=== PATIENT | female | born 1980 | race Caucasian/White ===

== ENCOUNTER 2023-08-14 12:10 | Inpatient (IN) | payer BC ==
[~2023-08-14] VITALS: Ht 172.7 cm; Wt 83.0 kg
[2023-08-14 12:10] VITALS: BP_SYST 134; PULSE 61; RESP 20; TEMP 96.7; O2SAT 100
[2023-08-14] MEDS ORDERED: NACL 0.9% 1,000 ML IV ONE (12:30)
[2023-08-14] MEDS ORDERED: MORPHINE 4 MG INJ. 4 MG/ML VIAL IVP ONE (12:30)
[2023-08-14] MEDS ORDERED: ONDANSETRON HCL 4 MG/2 ML VIAL IVP ONE ×2 (12:30→15:00)
[2023-08-14] MEDS ORDERED: KETOROLAC TROMETHAMINE 30 MG VIAL IVP ONE (12:30)
[2023-08-14 13:11] LABS: CALCIUM 9.6 mg/dL (8.4-11.0); CREATININE 0.89 mg/dL (0.55-1.30); POTASSIUM 3.5 mmol/L (3.5-5.1)
[2023-08-14 13:13] LABS: BASOPHILS # (AUTO) 0.1 K/uL (0.0-0.2); BASOPHILS % (AUTO) 0.3 % (0.0-2.0); EOSINOPHILS # (AUTO) 0.1 K/uL (0.0-0.4); EOSINOPHILS % (AUTO) 0.4 % (0.0-4.0); HEMOGLOBIN 14.8 g/dL (12.0-16.0); LYMPHOCYTES # (AUTO) 1.7 K/uL (1.0-5.5); LYMPHOCYTES % (AUTO) 8.5 % (20.5-51.5); MEAN CORPUSCULAR HEMOGLOBIN 30 pg (27-31); MEAN CORPUSCULAR HGB CONC 34 % (32-36); MEAN CORPUSCULAR VOLUME 87 fL (79.0-98.0); MONOCYTES # (AUTO) 0.8 K/uL (0.0-1.0); MONOCYTES % (AUTO) 3.8 % (1.7-9.3); PLATELET COUNT (AUTO) 256 K/uL (130-430); RED BLOOD CELL COUNT(AUTO) 4.94 MIL/uL (4.2-6.2); RED CELL DISTRIBUTION WIDTH 14.1 % (9.0-15.0); WHITE BLOOD COUNT (AUTO) 19.5 K/uL (4.8-10.8)
[2023-08-14 13:21] LABS: ALBUMIN 4.4 g/dL (3.4-4.8); BILIRUBIN,DIRECT 0.3 mg/dL (0.0-0.3); TOTAL BILIRUBIN 0.9 mg/dL (0.0-1.0); TOTAL PROTEIN, SERUM 7.7 g/dL (6.4-8.3)
[2023-08-14 13:21] LABS: BILIRUBIN,URINE 1+ (NEGATIVE); BLOOD, URINE 3+ (NEGATIVE); CLARITY/URINE SL CLOUDY (CLEAR); COLOR,URINE YELLOW (YELLOW); GLUCOSE,URINE NEGATIVE (NEGATIVE); KETONES,URINE 3+ (NEGATIVE); LEUKOCYTE ESTERASE ,URINE NEGATIVE (NEGATIVE); NITRITE, URINE NEGATIVE (NEGATIVE); PROTEIN URINE 1+ (NEGATIVE); UROBILINOGEN,URINE 0.2 (0.2-1.0)
[2023-08-14 13:42] LABS: BACTERIA,URINE MODERATE /HPF (None Seen); WBC,URINE 0-3 /HPF (0-3)
[2023-08-14 13:43] LABS: CALCIUM OXALATE CRYSTALS,UR 0-10 /HPF (None Seen)
[2023-08-14] MEDS ORDERED: DIPHENHYDRAMINE INJ 50 MG/ML VIAL IVP ONE (17:00)
[2023-08-14] MEDS ORDERED: METOCLOPRAMIDE HCL 10 MG/2 ML VIAL IVP ONE (17:00)
[2023-08-14] MEDS ORDERED: cefTRIAXone 1 GM in D5W 50 ML IV ONE (17:45)
[2023-08-14] MEDS ORDERED: metroNIDAZOLE 500 mg/NS 100 ML IV ONE (17:45)
[2023-08-14] MEDS ORDERED: MORPHINE 2 MG/ML INJ. SYRINGE IVP ONE (17:45)
[2023-08-14] MEDS ORDERED: metroNIDAZOLE 500 mg/NS 100 ML IV SCH (18:00)
[2023-08-14] MEDS ORDERED: cefTRIAXone 1 GM VIAL ONE (18:07)
[2023-08-14] MEDS ORDERED: TIRZ10PE SUBCUT (19:16)
[2023-08-14] MEDS ORDERED: ATOR40TA68 PO (19:16)
[2023-08-14] MEDS: cefTRIAXone 1 GM IVPB PREMIX 50 ML IV SCH (20:37)
[2023-08-14 20:52] VITALS: BP_SYST 107; PULSE 61; RESP 20; TEMP 98.6; O2SAT 98
[2023-08-14] MEDS ORDERED: MORPHINE 2 MG/ML INJ. SYRINGE IVP PRN ×2 (22:15)
[2023-08-14] MEDS ORDERED: NALOXONE HCL 0.4 MG/ML AMP (NARCAN) IVP PRN (22:15)
[2023-08-14] MEDS: ONDANSETRON HCL 4 MG/2 ML VIAL IVP PRN (23:15)
[2023-08-14] MEDS: 0.45% NACL 1,000 ML IV SCH (23:16)
[2023-08-15 00:40] VITALS: BP_SYST 100; PULSE 60; RESP 18; TEMP 98.4; O2SAT 98
[2023-08-15] MEDS ORDERED: metroNIDAZOLE 500 mg/NS 100 ML IV ONE (01:31)
[2023-08-15] MEDS: metroNIDAZOLE 500 mg/NS 100 ML IV SCH ×3 (05:10→22:57)
[2023-08-15] MEDS: 0.45% NACL 1,000 ML IV SCH ×4 (05:14→23:03)
[2023-08-15 07:02] LABS: BASOPHILS # (AUTO) 0.1 K/uL (0.0-0.2); BASOPHILS % (AUTO) 0.5 % (0.0-2.0); EOSINOPHILS # (AUTO) 0.1 K/uL (0.0-0.4); EOSINOPHILS % (AUTO) 0.5 % (0.0-4.0); HEMATOCRIT 37.6 % (36-48); HEMOGLOBIN 12.8 g/dL (12.0-16.0); LYMPHOCYTES # (AUTO) 2.2 K/uL (1.0-5.5); LYMPHOCYTES % (AUTO) 17.7 % (20.5-51.5); MEAN CORPUSCULAR HEMOGLOBIN 30 pg (27-31); MEAN CORPUSCULAR HGB CONC 34 % (32-36); MEAN CORPUSCULAR VOLUME 88 fL (79.0-98.0); MONOCYTES # (AUTO) 0.8 K/uL (0.0-1.0); MONOCYTES % (AUTO) 6.4 % (1.7-9.3); NEUTROPHILS # (AUTO) 9.1 K/uL (1.8-7.7); NEUTROPHILS % (AUTO) 74.9 % (40.0-70.0); PLATELET COUNT (AUTO) 212 K/uL (130-430); RED BLOOD CELL COUNT(AUTO) 4.29 MIL/uL (4.2-6.2); RED CELL DISTRIBUTION WIDTH 13.7 % (9.0-15.0); WHITE BLOOD COUNT (AUTO) 12.2 K/uL (4.8-10.8)
[2023-08-15 08:00] VITALS: BP_SYST 120; PULSE 77; RESP 20; TEMP 98.4; O2SAT 100
[2023-08-15 08:07] LABS: ALBUMIN 3.1 g/dL (3.4-4.8); CALCIUM 8.1 mg/dL (8.4-11.0); CREATININE 0.7 mg/dL (0.55-1.30); POTASSIUM 3.5 mmol/L (3.5-5.1); THYROID STIMULATING HORMONE 1.2 uIu/mL (0.34-4.82); TOTAL BILIRUBIN 0.7 mg/dL (0.0-1.0)
[2023-08-15 11:30] VITALS: BP_SYST 112; PULSE 56; RESP 16; TEMP 98.4; O2SAT 100
[2023-08-15 17:15] VITALS: BP_SYST 107; PULSE 66; RESP 17; TEMP 98.2; O2SAT 98
[2023-08-15] MEDS: cefTRIAXone 1 GM IVPB PREMIX 50 ML IV SCH (17:48)
[2023-08-15] MEDS ORDERED: SUMAtriptan SUCCINATE 50 MG TABLET PO ONE (20:00)
[2023-08-15 20:05] VITALS: BP_SYST 136; PULSE 65; RESP 20; TEMP 97.7; O2SAT 100
[2023-08-16] VITALS: BP_SYST 129; PULSE 56; RESP 20; TEMP 98.2
[2023-08-16] MEDS: ONDANSETRON HCL 4 MG/2 ML VIAL IVP PRN ×2 (01:56→17:54)
[2023-08-16] MEDS ORDERED: PANTOPRAZOLE SODIUM 40 MG/VIAL (PROTONIX) IVP ONE (03:30)
[2023-08-16] MEDS ORDERED: METOCLOPRAMIDE HCL 10 MG/2 ML VIAL ONE (03:45)
[2023-08-16] MEDS: METOCLOPRAMIDE HCL 10 MG/2 ML VIAL IVP PRN ×3 (03:47→17:54)
[2023-08-16 05:15] LABS: BASOPHILS % (AUTO) 0.3 % (0.0-2.0); EOSINOPHILS % (AUTO) 0.3 % (0.0-4.0); HEMATOCRIT 42.5 % (36-48); HEMOGLOBIN 14.5 g/dL (12.0-16.0); LYMPHOCYTES # (AUTO) 1.2 K/uL (1.0-5.5); LYMPHOCYTES % (AUTO) 12.2 % (20.5-51.5); MEAN CORPUSCULAR HEMOGLOBIN 30 pg (27-31); MEAN CORPUSCULAR HGB CONC 34 % (32-36); MEAN CORPUSCULAR VOLUME 88 fL (79.0-98.0); MONOCYTES # (AUTO) 0.5 K/uL (0.0-1.0); MONOCYTES % (AUTO) 4.6 % (1.7-9.3); NEUTROPHILS # (AUTO) 8.4 K/uL (1.8-7.7); NEUTROPHILS % (AUTO) 82.6 % (40.0-70.0); PLATELET COUNT (AUTO) 271 K/uL (130-430); RED BLOOD CELL COUNT(AUTO) 4.84 MIL/uL (4.2-6.2); WHITE BLOOD COUNT (AUTO) 10.2 K/uL (4.8-10.8)
[2023-08-16 05:19] LABS: CALCIUM 8.9 mg/dL (8.4-11.0); CREATININE 0.85 mg/dL (0.55-1.30); POTASSIUM 3.3 mmol/L (3.5-5.1)
[2023-08-16] MEDS: metroNIDAZOLE 500 mg/NS 100 ML IV SCH ×2 (05:57→13:17)
[2023-08-16 08:00] VITALS: BP_SYST 140; PULSE 50; RESP 16; TEMP 98.4; O2SAT 100
[2023-08-16] MEDS ORDERED: METOCLOPRAMIDE HCL 10 MG/2 ML VIAL IVP ONE (08:15)
[2023-08-16] MEDS: 0.45% NACL 1,000 ML IV SCH ×2 (08:29→17:54)
[2023-08-16] MEDS ORDERED: ATORVASTATIN 20 MG TABLET PO SCH (09:00)
[2023-08-16 12:00] VITALS: BP_SYST 142; PULSE 70; RESP 20; TEMP 98.4; O2SAT 99
[2023-08-16 16:00] VITALS: BP_SYST 138; PULSE 76; RESP 18; TEMP 98.2; O2SAT 99
[2023-08-16] MEDS: cefTRIAXone 1 GM IVPB PREMIX 50 ML IV SCH (17:53)
[2023-08-16 19:00] VITALS: BP_SYST 136; PULSE 72; RESP 16; TEMP 98.2; O2SAT 99
== END 2023-08-16 23:54 | disposition home or self-care (01) | DRG 395 ==
LOC: SED 12:10 → STU 17:57 → SMU 08-16 19:59
PROVIDERS: ADMIT Internal Medicine; ATTEND Internal Medicine
DX: K65.4 Sclerosing mesenteritis (principal); E78.5 Hyperlipidemia, unspecified; R10.9 Unspecified abdominal pain; D72.829 Elevated white blood cell count, unspecified
CPT/HCPCS: 36415; 76376; 76830-TC; 76857; 80048; 80053; 80061; 80076; 81000; 81001; 81015; 83605; 83690; 83880; 84443; 84702; 85025; 87040; 99285; C9113; G0378; J0696; J1200; J1885; J2270; J2405; J2765; J3490